=== PATIENT | female | born 1955 | race Caucasian/White ===

== ENCOUNTER 2022-05-26 06:00 | Emergency (ER) | payer BC ==
[2022-05-26 07:16] LABS: ESTIMATED GFR 82 mL/min (>60)
[2022-05-26] MEDS ORDERED: Ondansetron 4 MG Tab.DIS PO ONE (07:31)
[2022-05-26] MEDS ORDERED: Ketorolac 30 MG/ML SDV IM ONE (07:31)
== END 2022-05-26 09:12 | disposition home or self-care (01) ==
LOC: JP.ED 06:00
DX: K80.20 Calculus of gallbladder without cholecystitis without obstruction (principal); I10 Essential (primary) hypertension; Z79.899 Other long term (current) drug therapy; Z86.16 Personal history of COVID-19
CPT/HCPCS: 36415; 74176; 80053; 81001; 85025; 86140; 96372; 99283; 99284; J1885; Q0162